=== PATIENT | female | born 1940 | race Caucasian/White ===

== ENCOUNTER 2023-01-27 11:57 | Inpatient (IN) | payer MEDICARE ==
[2023-01-27] MEDS ORDERED: Dextrose 50% Abboject 50 ML SYRINGE SLOW IVP PRN (15:41)
[2023-01-27] MEDS ORDERED: Ondansetron ODT 4 MG TAB PO PRN (15:41)
[2023-01-27] MEDS ORDERED: Morphine 2 MG/ML VIAL SLOW IVP PRN (15:41)
[2023-01-27] MEDS ORDERED: TETANUS, DIPHTHERIA TOX,ADULT (TDVAX) 0.5 ML VIAL IM ONE (15:41)
[2023-01-27] MEDS ORDERED: hydrALAZINE 20 MG/ML VIAL SLOW IVP PRN (15:41)
[2023-01-27] MEDS ORDERED: Glucagon 1 MG/ML KIT IM PRN (15:41)
[2023-01-27] MEDS ORDERED: Dextrose 5% in Water 1,000 ML IV PRN (15:41)
[2023-01-27] MEDS ORDERED: Ipratropium/Albuterol 3 ML NEB NEB PRN (15:41)
[2023-01-27] MEDS: Sodium Chloride 0.9% 1,000 ML IV SCH (16:48)
[2023-01-27] MEDS: traMADol HCl 50 MG TAB PO PRN (17:41)
[2023-01-27] MEDS: Acetaminophen 325 MG TAB PO SCH (17:41)
[2023-01-27 18:30] VITALS: BMI 20.6
[2023-01-27] MEDS: Famotidine 20 MG TAB PO SCH (20:59)
[2023-01-27] MEDS: Amitriptyline HCl 25 MG TAB PO SCH (21:00)
[2023-01-27] MEDS: Donepezil HCl 10 MG TAB PO SCH (21:00)
[2023-01-27 21:40] LABS: Bilirubin Negative (Negative); Blood, Urine Negative (Negative); Clarity Clear (Clear); Glucose, Urine (Dipstick) Normal (Negative); Ketone, Urine Negative (Negative); Leukocyte 25 Leu/uL (Negative); Nitrite Negative (Negative); Protein, Urine (Dipstick) Negative (Neg-Trace); RBC/HPF 0-3 HPF (0-3); Specific Gravity, Urine 1.008 (1.002-1.036); Squamous Epithelial 0-3 HPF (0-3); Urobilinogen Normal mg/dL (Less than 2); pH, Urine 6.5 (5.0-9.0)
[2023-01-27 21:50] LABS: Bacteria/HPF Rare-Few HPF (None Seen)
[2023-01-28] MEDS: Acetaminophen 325 MG TAB PO SCH ×5 (00:02→23:15)
[2023-01-28] MEDS: traMADol HCl 50 MG TAB PO PRN ×2 (05:31→20:32)
[2023-01-28] MEDS: Sodium Chloride 0.9% 1,000 ML IV SCH ×2 (05:32→20:33)
[2023-01-28] MEDS ORDERED: fentaNYL PF 100 MCG/2 ML SYRINGE ONE (07:39)
[2023-01-28] MEDS ORDERED: Rocuronium Bromide 10 MG/ML (10ML VIAL) ONE ×2 (07:39→08:11)
[2023-01-28] MEDS ORDERED: PROPOFOL 20 ML ONE (07:39)
[2023-01-28] MEDS ORDERED: Lidocaine 2% PF 5 ML VIAL ONE (07:39)
[2023-01-28] MEDS ORDERED: Sodium Chloride 0.9% 100 ML ONE (07:41)
[2023-01-28] MEDS ORDERED: CEFAZOLIN 2 GM VIAL ONE (07:41)
[2023-01-28] MEDS ORDERED: Lidocaine 1% PF 5 ML VIAL ONE (08:11)
[2023-01-28] MEDS ORDERED: Esmolol 100 MG/10 ML VIAL ONE ×2 (08:11→09:42)
[2023-01-28] MEDS ORDERED: Ondansetron PF 4 MG/2 ML Vial ONE ×2 (08:11→08:45)
[2023-01-28] MEDS ORDERED: Glycopyrrolate 0.2 MG/ML 5 ML SYRINGE ONE ×2 (08:11→09:36)
[2023-01-28] MEDS ORDERED: NEOSTIGMINE 3 MG/3 ML SYR 3 MG/3 ML SYRINGE ONE ×2 (08:11→09:36)
[2023-01-28] MEDS ORDERED: Dexamethasone 20 MG/5 ML VIAL ONE ×2 (08:11→08:45)
[2023-01-28] MEDS ORDERED: Ketorolac Tromethamine 30 MG/ML VIAL ONE ×2 (08:11→09:26)
[2023-01-28] MEDS ORDERED: PROPOFOL 200 MG/20 ML VIAL ONE (08:11)
[2023-01-28] MEDS ORDERED: Ondansetron HCl/PF 4 MG/2 ML Vial IVP PRN (09:16)
[2023-01-28] MEDS ORDERED: HYDROmorphone 2 MG/ML VIAL SLOW IVP PRN (09:16)
[2023-01-28] MEDS ORDERED: Morphine Sulfate 2 MG/ML SYRINGE SLOW IVP PRN (09:16)
[2023-01-28] MEDS ORDERED: PACU-Morphine 4MG/ML VIAL SLOW IVP PRN (09:16)
[2023-01-28] MEDS ORDERED: Promethazine HCl 25 MG/ML VIAL IM PRN (09:16)
[2023-01-28] MEDS ORDERED: fentaNYL 50 mcg/mL 1 mL Vial ONE ×3 (10:04→11:02)
[2023-01-28] MEDS: Famotidine 20 MG TAB PO SCH ×2 (12:30→20:32)
[2023-01-28] MEDS: CEFAZOLIN 2 GM in Sodium Chloride 0.9% 100 ML IVPB SCH ×2 (14:13→23:16)
[2023-01-28] MEDS ORDERED: CEFAZOLIN 2 GM in Sodium Chloride 0.9% 100 ML IVPB SCH (15:15)
[2023-01-28] MEDS: Donepezil HCl 10 MG TAB PO SCH (20:32)
[2023-01-28] MEDS: Amitriptyline HCl 25 MG TAB PO SCH (20:32)
[2023-01-29] MEDS: traMADol HCl 50 MG TAB PO PRN ×2 (05:41→20:49)
[2023-01-29] MEDS: Acetaminophen 325 MG TAB PO SCH ×3 (05:41→17:13)
[2023-01-29] MEDS: CEFAZOLIN 2 GM in Sodium Chloride 0.9% 100 ML IVPB SCH ×3 (05:42→21:00)
[2023-01-29 06:58] LABS: #Monocytes 0.5 thou/uL (0.11-0.59); #Neutrophils 5.3 thou/uL (1.40-6.50); %Basophils 0.1 % (0.0-1.0); %Eosinophils 0.1 % (0.0-10.0); %Lymphocytes 13.2 % (21.0-51.0); %Neutrophils 78.2 % (42.0-75.0); Hematocrit 28.6 % (36.0-47.0); Hemoglobin 9.3 g/dL (12.0-16.0); Mean Corpuscular HGB CONC 32.5 g/dL (32.0-36.0); Mean Corpuscular Hemoglobin 30.7 pg (27.0-31.0); Mean Corpuscular Volume 94.4 fl (78.0-98.0); Mean Platelet Volume 9.2 fL (7.4-10.4); Platelet Count 152 10x3/uL (130-400); RBC Distribution Width 12.5 % (11.5-14.5); Red Blood Cell (RBC) Count 3.03 mill/uL (4.20-5.40); White Blood Cell (WBC) Count 6.8 10x3/uL (4.8-10.8)
[2023-01-29 07:17] LABS: Anion Gap 10 mmol/L (10-20); BUN (Urea Nitrogen) 12 mg/dL (9.8-20.1); Calc. Creatinine Clearance 43 mL/min (70-130); Carbon Dioxide 26 mmol/L (23-31); Chloride 108 mmol/L (98-107); Estimated GFR 54; Glucose 109 mg/dL (83-110); Potassium 3.7 mmol/L (3.5-5.1); Sodium 140 mmol/L (136-145)
[2023-01-29] MEDS: Famotidine 20 MG TAB PO SCH ×2 (09:00→20:48)
[2023-01-29] MEDS: Sodium Chloride 0.9% 1,000 ML IV SCH (09:00)
[2023-01-29] MEDS: Aspirin 81 mg Enteric Coated Tablet PO SCH (20:48)
[2023-01-29] MEDS: Amitriptyline HCl 25 MG TAB PO SCH (20:48)
[2023-01-29] MEDS: Donepezil HCl 10 MG TAB PO SCH (20:48)
[2023-01-30] MEDS: Acetaminophen 325 MG TAB PO SCH ×3 (01:01→12:18)
[2023-01-30] MEDS: CEFAZOLIN 2 GM in Sodium Chloride 0.9% 100 ML IVPB SCH (05:48)
[2023-01-30] MEDS: Sodium Chloride 0.9% 1,000 ML IV SCH (06:19)
[2023-01-30 06:31] LABS: #Eosinphils 0.2 thou/uL (0.0-0.7); #Monocytes 0.4 thou/uL (0.11-0.59); #Neutrophils 2.8 thou/uL (1.40-6.50); %Basophils 0.2 % (0.0-1.0); %Eosinophils 3.2 % (0.0-10.0); %Monocytes 8.4 % (0.0-10.0); Hemoglobin 8.6 g/dL (12.0-16.0); Mean Corpuscular HGB CONC 33.1 g/dL (32.0-36.0); Mean Corpuscular Hemoglobin 31.7 pg (27.0-31.0); Mean Corpuscular Volume 95.9 fl (78.0-98.0); Mean Platelet Volume 9.3 fL (7.4-10.4); Platelet Count 144 10x3/uL (130-400); Red Blood Cell (RBC) Count 2.71 mill/uL (4.20-5.40); White Blood Cell (WBC) Count 4.6 10x3/uL (4.8-10.8)
[2023-01-30] MEDS ORDERED: Sodium Chloride 0.9% 1,000 ML IV SCH (07:45)
[2023-01-30] MEDS: Famotidine 20 MG TAB PO SCH (08:57)
[2023-01-30] MEDS: Aspirin 81 mg Enteric Coated Tablet PO SCH (08:57)
[2023-01-30 11:58] VITALS: BP 147/69; TEMP 97.7
== END 2023-01-30 14:02 | disposition home or self-care (01) | DRG 522 ==
LOC: SURG A 14:29
PROVIDERS: ADMIT Surgery; ATTEND Surgery
PROC: 0SRR0JZ Replacement of Right Hip Joint, Femoral Surface with Synthetic Substitute, Open Approach (ICD-10-PCS; principal; 2023-01-28)
DX: S72.001A Fracture of unspecified part of neck of right femur, initial encounter for closed fracture (principal); W18.30XA Fall on same level, unspecified, initial encounter; Z90.710 Acquired absence of both cervix and uterus; Z90.49 Acquired absence of other specified parts of digestive tract; I10 Essential (primary) hypertension; Z79.899 Other long term (current) drug therapy
CPT/HCPCS: 36415; 36416; 72170; 80048; 81001; 85025; C1776; J1100; J1885; J2001; J2405; J2704; J3010; J3490; J7050